=== PATIENT | female | born 1995 | race Caucasian/White ===

== ENCOUNTER 2018-03-11 04:15 | Emergency (ER) | payer MEDICAID, OTHER, SELFPAY ==
[2018-03-11] MEDS ORDERED: HYDROcodone/Acetaminophen 10/325 mg Tablet ONE (04:40)
[2018-03-11] MEDS ORDERED: AMOXicillin 250 MG CAP ONE (04:41)
[2018-03-11] MEDS ORDERED: Naproxen 500 MG TAB ONE (04:41)
== END 2018-03-11 04:45 | disposition home or self-care (01) ==
LOC: MADERS 04:15
DX: K02.9 Dental caries, unspecified (principal); K04.7 Periapical abscess without sinus; K03.81 Cracked tooth; J45.909 Unspecified asthma, uncomplicated; F90.9 Attention-deficit hyperactivity disorder, unspecified type; Z79.899 Other long term (current) drug therapy
CPT/HCPCS: 99282

== ENCOUNTER 2018-06-28 16:19 | Emergency (ER) | payer MEDICAID, OTHER ==
[~2018-06-28 16:19] MED LIST: Sodium Chloride 0.9% 1,000 ML BAG ONE
[2018-06-28] MEDS ORDERED: methylPREDNISolone Sod Succ/PF 125 MG/2 ML VIAL ONE (16:53)
[2018-06-28] MEDS ORDERED: diphenhydrAMINE 50 MG/ML VIAL ONE (16:55)
[2018-06-28] MEDS ORDERED: Ondansetron HCl/PF 4 MG/2 ML Vial ONE (16:55)
[2018-06-28 17:09] LABS: ALT (SGPT) 8 U/L (8-55); AST (SGOT) 24 U/L (5-34); Albumin 3.7 g/dL (3.5-5.0); Alkaline Phosphatase 150 U/L (40-150); Anion Gap 15 mmol/L (10-20); BUN (Urea Nitrogen) 8 mg/dL (7.0-18.7); Bilirubin, Total 0.2 mg/dL (0.2-1.2); Calc. Creatinine Clearance 0 mL/min (70-130); Carbon Dioxide 18 mmol/L (22-29); Chloride 107 mmol/L (98-107); Estimated GFR-MDRD Greater than 90; Globulin 3.9 g/dL (2.4-3.5); Glucose 85 mg/dL (70-105); Potassium 4.3 mmol/L (3.5-5.1); Protein, Total 7.6 g/dL (6.0-8.3); Sodium 136 mmol/L (136-145)
[2018-06-28 17:10] LABS: Band 6 % (5-11); Hemoglobin 11.3 g/dL (12.0-16.0); Lymphocytes 21 % (21-51); MDiff Complete? YES; Mean Corpuscular HGB CONC 32.6 g/dL (32.0-36.0); Mean Corpuscular Hemoglobin 25.8 pg (27.0-31.0); Mean Corpuscular Volume 79.2 fL (78.0-98.0); Mean Platelet Volume 8.2 fL (7.4-10.4); Monocytes 4 % (0-10); Neutrophil 69 % (42-75); PLT Morphology Comment Appears Increased; Platelet Count 534 thou/uL (130-400); RBC Distribution Width 14.7 % (11.5-14.5); Red Blood Cell (RBC) Count 4.39 mill/uL (4.20-5.40); White Blood Cell (WBC) Count 20.5 thou/uL (4.8-10.8)
[2018-06-28 17:48] LABS: Bilirubin Negative (Negative); Blood, Urine Negative (Negative); Clarity Slightly Cloudy (Clear); Glucose, Urine (Dipstick) Negative (Negative); Leukocyte Negative (Negative); Nitrite Negative (Negative); Protein, Urine (Dipstick) 100 mg/dL (Neg-Trace); Specific Gravity, Urine 1.025 (1.005-1.030); Urobilinogen 0.2 mg/dL (0.2-1.0)
[2018-06-28 18:02] LABS: Bacteria/HPF 2+ HPF (None Seen); RBC/HPF 0-3 HPF (0-3); Squamous Epithelial 21-50 HPF (0-3)
== END 2018-06-28 18:10 | disposition short-term general hospital (02) ==
LOC: MADERS 16:19
DX: O9A.213 Injury, poisoning and certain other consequences of external causes complicating pregnancy, third trimester (principal); T78.40XA Allergy, unspecified, initial encounter; O99.513 Diseases of the respiratory system complicating pregnancy, third trimester; J45.909 Unspecified asthma, uncomplicated; O99.343 Other mental disorders complicating pregnancy, third trimester; F90.9 Attention-deficit hyperactivity disorder, unspecified type; Z3A.35 35 weeks gestation of pregnancy; X58.XXXA Exposure to other specified factors, initial encounter
CPT/HCPCS: 80053; 81003; 81015; 85025; 93005; 96361; 96374; 96375; J1200; J2405; J2930; J7050

== ENCOUNTER 2019-04-20 04:18 | Emergency (ER) | payer OTHER, SELFPAY ==
[2019-04-20 04:42] LABS: Bilirubin Large (Negative); Blood, Urine Small (Negative); Clarity Clear (Clear); Glucose, Urine (Dipstick) Negative (Negative); Leukocyte Trace (Negative); Nitrite Negative (Negative); Protein, Urine (Dipstick) 100 mg/dL (Neg-Trace); Urobilinogen 0.2 mg/dL (Less than 2)
[2019-04-20 04:44] LABS: Pregnancy Test - Urine (BHCG) Negative (Negative); Pregu Control Background? CLEAR/WHITE (CLR/WHITE); Pregu Control Bar Appear? YES (CONTROL BAR)
[2019-04-20] MEDS ORDERED: Ondansetron PF 4 MG/2 ML Vial ONE (04:44)
[2019-04-20] MEDS ORDERED: Sodium Chloride 0.9% 1,000 ML ONE ×2 (04:44→06:46)
[2019-04-20 04:50] LABS: Bacteria/HPF Rare-Few HPF (None Seen); Mucous/LPF 1+ LPF (<2+); RBC/HPF 0-3 HPF (0-3)
[2019-04-20] MEDS ORDERED: Ketorolac Tromethamine 30 MG/ML VIAL ONE (05:13)
[2019-04-20 05:33] LABS: Hemoglobin 12.2 g/dL (12.0-16.0); Mean Corpuscular HGB CONC 32.4 g/dL (32.0-36.0); Mean Corpuscular Volume 77.4 fL (78.0-98.0); Mean Platelet Volume 8.2 fL (7.4-10.4); Platelet Count 337 thou/uL (130-400); RBC Distribution Width 14.5 % (11.5-14.5); Red Blood Cell (RBC) Count 4.87 mill/uL (4.20-5.40); White Blood Cell (WBC) Count 22.9 thou/uL (4.8-10.8)
[2019-04-20 05:43] LABS: ALT (SGPT) 23 U/L (8-55); AST (SGOT) 26 U/L (5-34); Albumin 4.8 g/dL (3.5-5.0); Alkaline Phosphatase 74 U/L (40-150); Anion Gap 19 mmol/L (10-20); BUN (Urea Nitrogen) 9 mg/dL (7.0-18.7); Bilirubin, Total 0.7 mg/dL (0.2-1.2); Calc. Creatinine Clearance 0 mL/min (70-130); Calcium 9.6 mg/dL (7.8-10.44); Carbon Dioxide 18 mmol/L (22-29); Chloride 106 mmol/L (98-107); Estimated GFR-MDRD 85; Globulin 3.5 g/dL (2.4-3.5); Glucose 98 mg/dL (70-105); Potassium 3.5 mmol/L (3.5-5.1); Protein, Total 8.3 g/dL (6.0-8.3); Sodium 139 mmol/L (136-145)
[2019-04-20 06:05] LABS: Band 4 % (5-11); Lymphocytes 6 % (21-51); MDiff Complete? YES; Monocytes 2 % (0-10); Neutrophil 88 % (42-75); Platelet Morphology Comment Appears Adequate; RBC Morphology Normal
[2019-04-20] MEDS ORDERED: Sodium Chloride 0.9% 100 ML BAG ONE (06:28)
[2019-04-20] MEDS ORDERED: Piperacillin/Tazobactam 4.5 GM VIAL ONE (06:46)
--- NOTE | 2019-04-20 07:40 | CT ---
ABDOMEN AND PELVIS CT WITH IV CONTRAST: Enteric contrast not administered per ordering physician's request, which shows limited evaluation of the bowel. CLINICAL INDICATION: Low abdominal pain, nausea and vomiting. COMPARISON: No prior imaging comparison. FINDINGS: There is low attenuation of the hepatic parenchyma indicative of hepatic steatosis. Moderate distent ion of the gallbladder is seen. There is no hydronephrosis of either kidney or evidence of adrenal m ass. The spleen is unremarkable. No pneumoperitoneum. No abnormal distention of the unopacified harika wel. Intrauterine device is visualized within the confines of the uterus. There is a presumed domin ant follicle at the left adnexa, incompletely characterized on the basis of this exam. On examinatio n, the lung bases are clear. No abnormal distention of the imaged aspects of the unopacified appendi x. IMPRESSION: 1. Hepatic steatosis. 2. Moderate gallbladder distention. Correlate clinically, and, if necessary, gallbladder ultrasound may be obtained. 3. Left adnexal hypodensity which may be related to physiologic cyst/follicle. As clinically necess osbaldo, this may be further assessed with pelvic ultrasound. POS: ASHLEY
[2019-04-20] MEDS ORDERED: Iopamidol 370 76% 100 ML VIAL ONE (09:45)
== END 2019-04-20 07:19 | disposition short-term general hospital (02) ==
LOC: MADERS 04:18
DX: A41.9 Sepsis, unspecified organism (principal); R10.9 Unspecified abdominal pain; R11.2 Nausea with vomiting, unspecified; J45.909 Unspecified asthma, uncomplicated; F32.9 Major depressive disorder, single episode, unspecified; Z79.899 Other long term (current) drug therapy
CPT/HCPCS: 74177; 80053; 81001; 81025; 83605; 85025; 87040; 87086; 87149; 87804; 96361; 96374; 96375; J1885; J2405; J2543; J3370; J3490; J7050; Q9967